=== PATIENT | female | born 1995 | race Caucasian/White ===

== ENCOUNTER 2016-05-05 13:45 | Emergency (ER) | payer OTHER ==
[~2016-05-05] VITALS: Ht 170.2 cm; Wt 100.9 kg
[~2016-05-05 13:45] MED LIST changes: -BUTA1CAP PO; -MIRA33504 PO; -SUMA50TA2 PO; -ZOFR4TAB PO
[2016-05-05 13:47] VITALS: BP 122/68; PULSE 60; RESP 16; TEMP 98.6; O2SAT 99
--- NOTE | 2016-05-05 14:20 | PD ---
HPI Chief Complaint: Headache Time Seen by Provider: 14:10 Travel History International Travel<30 days: No Contact w/Intl Traveler<30days: No Traveled to known affect area: No History of Present Illness HPI This patient complains of migraine headache. She has long-standing history of migraines. She has a left frontal throbbing and some nausea. This is typical of her migraines. It's been lasting 12 hours. Severity is moderate. No thunderclap onset or head injury. No fevers. No alleviating factors. PFSH Past Medical History Asthma: No Autoimmune Disease: No Blood Disorders: No Anxiety: No Depression: No Heart Rhythm Problems: No Cancer: No Cardiovascular Problems: No High Cholesterol: No Chemotherapy: No Chest Pain: No Congestive Heart Failure: No COPD: No Diabetes: No Diminished Hearing: No Endocrine: No Gastrointestinal Disorders: Yes (visceral hypersensitivity) GERD: Yes Genitourinary: No Immune Disorder: No Musculoskeletal: No Neurologic: Yes Psychiatric: No Reproductive: Yes (polycystic ovaries) Respiratory: No Immunizations Current: Yes Migraines: Yes Pancreatitis: Yes Radiation Therapy: No Sleep Apnea: No Thyroid Disease: No ?: Not LMP: 04/18/2016 : 0 Ovarian Cysts: Yes Past Surgical History Abdominal Surgery: Yes (lap ana) Cholecystectomy: Yes (03/29/12) Ear Surgery: Yes (tubes) Pacemaker: No Tympanostomy Tube: Yes Other Surgery: Yes (TUBES IN THE EARS) Social History Alcohol Use: Yes (OCC) Tobacco Use: No Substance Use: No Allergies-Medications (Allergen,Severity, Reaction): Coded Allergies: Augmentin (Verified Allergy, Severe, RASH, 05/05/16) Reported Meds & Prescriptions Reported Meds & Active Scripts Active Review of Systems General / Constitutional: No: Fever Eyes: No: Visual changes HENT: Positive: Headaches Cardiovascular: No: Chest Pain or Discomfort Respiratory: No: Shortness of Breath Gastrointestinal: Positive: Nausea, No: Abdominal Pain Genitourinary: No: Dysuria Musculoskeletal: No: Pain Skin: No Rash Neurologic: Positive: Headache, No: Weakness Psychiatric: No: Depression Endocrine: No: Polydipsia Hematologic/Lymphatic: No: Easy Bruising Physical Exam Narrative GENERAL: Well-nourished, well-developed patient with headache. SKIN: Warm and dry. HEAD: Atraumatic. Normocephalic. EYES: Pupils equal and round. No scleral icterus. No injection or drainage. ENT: No nasal bleeding or discharge. Mucous membranes pink and moist. NECK: Trachea midline. No JVD. No meningeal signs CARDIOVASCULAR: Regular rate and rhythm. No murmur appreciated. RESPIRATORY: No accessory muscle use. Clear to auscultation. Breath sounds equal bilaterally. GASTROINTESTINAL: Abdomen soft, non-tender, nondistended. Hepatic and splenic margins not palpable. MUSCULOSKELETAL: No obvious deformities. No clubbing. No cyanosis. No edema. NEUROLOGICAL: Awake and alert. No obvious cranial nerve deficits. Motor grossly within normal limits. Normal speech. PSYCHIATRIC: Appropriate mood and affect; insight and judgment normal. Data Data Last Documented VS Vital Signs Date Time Temp Pulse Resp B/P Pulse Ox O2 Delivery O2 Flow Rate FiO2 05/05/16 13:47 98.6 60 16 122/68 99 Orders Ondansetron Inj (Zofran Inj) (05/05/16 14:30) Morphine Inj (Morphine Inj) (05/05/16 14:30) [facility] Medical Decision Making Medical Screen Exam Complete: Yes Emergency Medical Condition: Yes Medical Record Reviewed: Yes Differential Diagnosis Differential diagnosis includes migraine, tension headache, cluster headache, meningitis. Narrative Course I have reviewed the patient's electronic medical record. Patient is neurologically intact without red flags to suggest emergent imaging is indicated. I gave her injection of morphine and Zofran Prescriptions written Diagnosis Primary Impression: Migraine Qualified Code: G43.009 - Migraine without aura and without status migrainosus , not intractable Additional Instructions: The patient was advised to follow up with their physician and return if they worsen. The patient was warned about potential sedation for the medications they will receive on prescription. Med/Other Pt SpecificInfo: Prescription(s) given Disposition: DISCHARGE HOME Condition: Stable Hemant Silva MD May 05, 2016 14:20
[2016-05-05] MEDS ORDERED: ONDANSETRON HCL 4 MG/2 ML VIAL IM ONE (14:30)
[2016-05-05] MEDS ORDERED: MORPHINE SULFATE 4 MG/ML INJ IM ONE (14:30)
[2016-05-05] MEDS ORDERED: ZOFR4TAB PO (15:04)
[2016-05-05] MEDS ORDERED: BUTA1CAP PO (15:04)
[2016-07-29] MEDS ORDERED: SUMA50TA2 PO (14:19)
[2016-07-30] MEDS ORDERED: MIRA33504 PO (09:09)
== END 2016-05-05 15:19 | disposition home or self-care (01) ==
LOC: NEPB 13:45
DX: G43.009 Migraine without aura, not intractable, without status migrainosus (principal)
CPT/HCPCS: 96372; 99283; J2270; J2405

== ENCOUNTER → 2016-05-05 | Outpatient (CLI) | payer OTHER ==
[~2016-05-05] MED LIST: BUTA1CAP PO; HYDR-3533 PO; MIRA33504 PO; ONDA4 PO; SUMA50TA2 PO; ULTR50TA PO; ZOFR4TAB PO; ZOFR8TAB4 PO
[2016-05-05 10:45] LABS: AUTOMATED NEUTROPHIL # 3.6 TH/MM3 (1.8-7.7); BASOPHIL % 0.3 % (0.0-2.0); EOSINOPHIL # 0.1 TH/MM3 (0-0.4); EOSINOPHIL % 2.3 % (0.0-4.0); HEMATOCRIT 39.9 % (35.0-46.0); HEMO FLAGS DIFF FINAL; LYMPHOCYTE # 2.2 TH/MM3 (1.0-4.8); MEAN CELL VOLUME 87.5 FL (80.0-100.0); MEAN CORPUSCULAR HEMOGLOBIN 30.2 PG (27.0-34.0); MEAN CORPUSCULAR HGB CONC 34.5 % (32.0-36.0); MONO % 8.1 % (0.0-8.0); NEUT % 55.3 % (16.0-70.0); PLATELET COUNT 319 TH/MM3 (150-450); RED BLOOD COUNT 4.56 MIL/MM3 (4.00-5.30); RED CELL DISTRIBUTION WIDTH 12.8 % (11.6-17.2); WHITE BLOOD COUNT 6.4 TH/MM3 (4.0-11.0)
[2016-05-05 11:47] LABS: ALKALINE PHOSPHATASE 68 U/L (45-117); ALT (GPT) 15 U/L (10-53); ANION GAP 8 MEQ/L (5-15); AST (GOT) 18 U/L (15-37); BICARBONATE 27.2 MEQ/L (21.0-32.0); BLOOD UREA NITROGEN 8 MG/DL (7-18); CHLORIDE 103 MEQ/L (98-107); FERRITIN 24 NG/ML (8-252); GLOMERULAR FILTRATION RATE 81 ML/MIN (>89); GLUCOSE,FASTING 86 MG/DL (74-99); HDL CHOLESTEROL 55.1 MG/DL (40.0-60.0); LDL CHOLESTEROL 85 MG/DL (0-99); SODIUM (NA) 138 MEQ/L (136-145); TOTAL BILIRUBIN ADULT 0.7 MG/DL (0.2-1.0); TRANSFERRIN IRON PROFILE 258 MG/DL (200-360)
== END ==
LOC: CLAB 10:22
PROVIDERS: ATTEND Internal Medicine
DX: D50.8 Other iron deficiency anemias (principal)
CPT/HCPCS: 36415; 80053; 80061; 82306; 82607; 82728; 83540; 83550; 84443; 85025

== ENCOUNTER → 2016-06-28 | Outpatient (CLI) | payer OTHER ==
[~2016-06-28] MED LIST changes: +BUTA1CAP PO; -HYDR-3533 PO; +MIRA33504 PO; -ONDA4 PO; +SUMA50TA2 PO; -ULTR50TA PO; +ZOFR4TAB PO; -ZOFR8TAB4 PO
== END ==
LOC: CLAB 11:53
PROVIDERS: ATTEND Obstetrics & Gynecology
DX: Z20.2 Contact with and (suspected) exposure to infections with a predominantly sexual mode of transmission (principal)
CPT/HCPCS: 36415; 86592; 86703

== ENCOUNTER → 2016-07-30 | Day surgery (SDC) | payer OTHER ==
[~2016-07-30] VITALS: Ht 170.2 cm; Wt 94.8 kg
[~2016-07-30] MED LIST changes: -BUTA1CAP PO; +CHLORHEXIDINE GLUCONATE 2 % 1 PACK (2 CLOTHS) TOPICAL PRN; +INSULIN HUMAN REGULAR 1,000 UNITS/10 ML VIAL SQ PRN; +LACTATED RINGER'S 1000 ML IV PRN; +METOPROLOL TARTRATE 25 MG TAB PO PRN; +POVIDONE IODINE 5% (ANTISEPSIS KIT) 4 APPLICATIONS EACH NARE PRN; +PROPOFOL 200 MG/20 ML AMP IV ONE; +SODIUM CHLORID 0.9% 500 ML IV PRN; -ZOFR4TAB PO
[2016-07-30 09:07] VITALS: BP 123/67; PULSE 61; RESP 20; O2SAT 100
[2016-07-30 11:32] VITALS: TEMP 97.6
--- NOTE | 2016-07-30 11:36 | PD.PROCEDR ---
GI Procedure PROCEDURE PERFORMED EGD with biopsy INDICATION FOR PROCEDURE Abdominal pain history of gastroparesis PROCEDURE: The procedure, risks and benefits were discussed with Ms. Richardson and informed consent was obtained. Anesthesia sedated her with Diprivan. She was placed in the left lateral decubitus position. EGD: The Pentax videoscope was introduced through the oropharynx and advanced to the second portion of the duodenum under direct visualization. Retroflexion was performed in the stomach. FINDINGS: The esophagus this appeared to be unremarkable within normal limits The stomach there was patchy erythema in the antrum but no ulcerations or erosions no blood or bleeding antral biopsies were taken for further evaluation The duodenum this was normal ESTIMATED BLOOD LOSS: None SPECIMENS REMOVED: Antral COMPLICATIONS: None IMPRESSION: Mild gastritis PLAN: Await biopsy Supportive care Follow-up in clinic Jack Black MD Jul 30, 2016 11:35
[2016-07-30 11:45] VITALS: BP 120/65; PULSE 76; RESP 16; O2SAT 100
== END | disposition home or self-care (01) ==
LOC: HEND 08:35
PROVIDERS: ATTEND Internal Medicine Gastroenterology
DX: K29.50 Unspecified chronic gastritis without bleeding (principal)
CPT/HCPCS: 88305; 88312